=== PATIENT | female | born 1970 | race African-American/Black ===

== ENCOUNTER 2016-09-29 00:41 | Emergency (ER) | payer OTHER ==
[~2016-09-29] VITALS: Ht 180.3 cm; Wt 88.8 kg
[~2016-09-29 00:41] MED LIST: AIRBORNE TABLE1 EAC1 PO; ALPRAZOLAM0.25 M2 PO; ALPRAZOLAM0.5 MG PO; ASCORBIC ACID500 M1 PO; CONCERTA18 MG PO; DOXAZOSIN MESYLA1 MG PO; FLEXERIL10 MG PO; GEODON40 MG PO; GEODON80 MG PO; IRON325 MG PO; NAPROXEN500 MG PO; NICODERM CQ1 EAC2 TD; PERPHENAZINE2 MG PO; QUETIAPINE FUM100 MG PO; SERTRALINE HCL100 MG PO; TYLENOL REGULA325 MG PO; ULTRAM50 MG PO; VITAMIN B12-FO1 EACH PO; XANAX XR0.5 MG PO; ZOLOFT100 MG PO; ZOLOFT25 MG PO
[2016-09-29] MEDS ORDERED: NORCO 5/3251 TABLET PO (01:22)
[2016-09-29] MEDS ORDERED: FLEXERIL10 MG PO (01:22)
[2016-09-29 01:40] VITALS: BP 128/87
== END 2016-09-29 01:42 | disposition home or self-care (01) ==
LOC: EME 00:41 → EXP 00:41
DX: S39.012A Strain of muscle, fascia and tendon of lower back, initial encounter (principal); S80.00XA Contusion of unspecified knee, initial encounter; V99.XXXA Unspecified transport accident, initial encounter
CPT/HCPCS: 99281; 99283